=== PATIENT | male | born 1935 | race Caucasian/White ===

== ENCOUNTER → 2018-11-23 | Outpatient (CLI) | payer MEDICARE, OTHER ==
[~2018-11-23] MED LIST: ADULTS 50+ MUL1 EACH PO; ALBU90OI INH; ASPI81CH PO; ATOR20 PO; ATOR40TA; ATOR40TA PO; BISA10S PR; CARV25 PO; CEPH500 PO; COZAAR PO; Carvedilol25 MG PO; DIPASPER; EZET10 PO; FISH1000 PO; HCTZ; HYDR1TAB94 PO; LOSA25 PO; METR500 PO; Norco 5-325 Ta1 EACH PO; Rocephin 1g1 G/50 ML IV; SPACE CHAMBER1 EACH MC; VALS80; Zithromax250 MG PO
== END | disposition home or self-care (01) ==
LOC: LAB 20:14 → LAB SHORT 20:14
DX: L08.9 Local infection of the skin and subcutaneous tissue, unspecified (principal)
CPT/HCPCS: 87070; 87205

== ENCOUNTER → 2019-02-16 | Outpatient (CLI) | payer MEDICARE, OTHER ==
[2019-02-19 13:06] LABS: DOPAMINE, URINE 247 ug/L (Undefined)
== END | disposition home or self-care (01) ==
LOC: LAB SHORT 10:53 → LAB 10:53
PROVIDERS: Family Medicine
DX: R61 Generalized hyperhidrosis (principal)
CPT/HCPCS: 81050; 82384

== ENCOUNTER 2020-11-01 10:38 | Inpatient (IN) | payer MEDICARE, OTHER ==
[~2020-11-01] VITALS: Ht 172.7 cm; Wt 82.0 kg
[~2020-11-01 10:38] MED LIST changes: -ATOR40TA PO; -CARV25 PO
[2020-11-01 12:00] LABS: BASOPHILS ABSOLUTE AUTO 0.02 K/mm3 (0.00-0.23); BASOPHILS PERCENT AUTO 0 % (0-2); EOSINOPHILS PERCENT AUTO 0 % (0-6); Hematocrit 29.9 % (37.0-53.0); Hemoglobin 9.7 g/dL (13.5-17.5); IMMATURE GRAN ABSOLUTE AUTO 0.05 K/mm3 (0.00-0.10); IMMATURE GRAN PERCENT AUTO 1 % (0-1); LYMPHOCYTES PERCENT AUTO 6 % (21-46); MONOCYTES ABSOLUTE AUTO 0.49 K/mm3 (0.16-1.47); MONOCYTES PERCENT AUTO 6 % (4-13); Mean Corpuscular HGB 32.7 pg (26.0-34.0); Mean Corpuscular HGB Conc 32.4 g/dL (31.5-36.5); Mean Corpuscular Volume 101 fL (80-100); NEUTROPHILS ABSOLUTE AUTO 6.99 K/mm3 (1.96-9.15); NEUTROPHILS PERCENT AUTO 87 % (41-73); Platelet Count 119 K/mm3 (150-400); RDW Coefficient Variation 12.4 % (11.7-14.2); RDW Standard Deviation 46.5 fL (35.1-46.3); Red Blood Cell Count 2.97 M/mm3 (4.30-5.90); White Blood Cell Count 8.05 K/mm3 (4.00-11.30)
[2020-11-01 12:24] LABS: Alanine Aminotransfer (ALT/SGP 39 U/L (12-78); Albumin, Blood 2.9 g/dL (3.4-5.0); Albumin/Globulin Ratio 0.7 (0.8-1.8); Alk Phos 105 U/L (50-136); Anion Gap 6 mmol/L (6-16); Aspartate Aminotrans (AST/SGOT 66 U/L (12-37); Bilirubin, Total 0.8 mg/dL (0.1-1.0); Blood Urea Nitrogen 43 mg/dL (8-24); Bun/Creatinine Ratio 21.7 (12.0-20.0); CO2, Blood 26 mmol/L (21-32); Calcium, Blood 8.5 mg/dL (8.5-10.1); Chloride, Blood 105 mmol/L (98-108); Creatinine, Blood 1.98 mg/dL (0.60-1.20); Globulin, Blood 4.1 g/dL (2.2-4.0); Glomerular Filtration Rate 34 (60-); Glucose, Blood 168 mg/dL (70-99); Potassium, Blood 4.6 mmol/L (3.5-5.5); Sodium, Blood 137 mmol/L (136-145); Troponin I 0.026 ng/mL (0.000-0.040)
[2020-11-01 12:30] LABS: CPK Creatine Kinase 1156 U/L (39-308); Creatine Kinase MB <1.0 ng/mL (0.0-3.6); Creatine Kinase MB Index Unable to Calculate (0.0-4.0)
[2020-11-01] MEDS ORDERED: LOSARTAN POTASS25 M2 PO (12:56)
[2020-11-01] MEDS ORDERED: ATOR40TA PO (12:56)
[2020-11-01] MEDS ORDERED: AMLODIPINE BES2.5 MG PO (12:57)
[2020-11-01] MEDS ORDERED: CARV25 PO (12:57)
--- NOTE | 2020-11-01 13:33 | NUR ---
ED Palliative Care Consult Spoke with ED Provider Hermila and discussed case. Pt has Dementia and had recent fall. Pt's spouse has reported hospice is suppose to come evaluate Pt for appropirateness of hospice. presented POLST to staff with Pt's wishes of DNR. returned home with POLST. Spoke with Hospitalist Ross and discussed case. Plan for Pt to be admitted to hospital. Pt resting on gurney upon arrival. Pt is pleasantly confused. Pt A&OX1. Pt denies pain at this time. Mild dyspnea and non productive cough noted. Attempted to contact spouse. No answer and voicemail not available. Will attempt to contact spouse at a later time. Palliative Care will F/U with Pt and family once admitted to floor.
--- NOTE | 2020-11-01 14:30 | NUR ---
REPORT RECIEVED FROM MARIBELL SUMNER RN
[2020-11-01 15:23] LABS: Source, Urine Clean Catch
[2020-11-01] MEDS ORDERED: AMLO5 (15:44)
[2020-11-01] MEDS ORDERED: FISH OIL PO (15:47)
[2020-11-01] MEDS ORDERED: CENTRUM SILVER1 EAC2 PO (15:47)
[2020-11-01] MEDS ORDERED: ASPI81CH PO (15:47)
[2020-11-01 15:50] LABS: Appearance, Urine Hazy (Clear); Bilirubin, Urine Neg (Neg); Blood, Urine 4+ (Neg); Color, Urine Amber (P-Yellow); Glucose Qualitative, Urine Neg (Neg); Ketones, Urine Neg (Neg); Leukocyte Esterase, Urine 1+ (Neg); Nitrite, Urine Neg (Neg); Protein, Urine 2+ (Neg); Specific Gravity, Urine 1.015 (1.003-1.022); Urobilinogen, Urine NORM (Normal)
[2020-11-01 16:18] LABS: Amorphous Light (0-Heavy); Bacteria Few /hpf; Granular Casts Rare /lpf (0); Squamous Epithelial Cells Rare /hpf (Few); Transitional Epithelial Cells Rare /hpf (0-Rare)
--- NOTE | 2020-11-01 22:39 | NUR ---
2000 85 Y/O MALE RESTING COMFORTABLY IN BED; CHEERFUL; DENIES PAIN OR NAUSEA; BED ALARM APPLIED FOR SAFETY.
[2020-11-02 03:29] LABS: Source, Urine Catheter
[2020-11-02 03:31] LABS: Bilirubin, Urine Neg (Neg); Blood, Urine 5+ (Neg); Glucose Qualitative, Urine Neg (Neg); Ketones, Urine 1+ (Neg); Leukocyte Esterase, Urine Neg (Neg); Nitrite, Urine Neg (Neg); Protein, Urine 2+ (Neg); Urobilinogen, Urine NORM (Normal)
[2020-11-02 03:36] LABS: Appearance, Urine Hazy (Clear); Color, Urine Yellow (P-Yellow)
[2020-11-02 03:37] LABS: Amorphous Light (0-Heavy); Bacteria Mod /hpf; Red Blood Cells, Urine 50-100 /hpf (0-2); Squamous Epithelial Cells Not Seen /hpf (Few)
[2020-11-02 04:45] LABS: Calcium, Blood 7.9 mg/dL (8.5-10.1); Creatinine, Blood 1.54 mg/dL (0.60-1.20); Potassium, Blood 4.2 mmol/L (3.5-5.5)
--- NOTE | 2020-11-02 05:10 | NUR ---
SHIFT SUMMARY: 72 Y/O MALE RESTED COMFORTABLY ALL NIGHT IN HIGH FOWLERS POSITION WHILE WEARING O2 AT 2L/M PER NASAL CANNULA; QUINN DRAINING CLEAR YELLOW FLUID; DENIES PAIN OR NAUSEA; RIGHT FOOT WOUND VAC HAS ZERO DRAINAGE WITH SITE DRY AND INTACT ON 120MM/HG CONTINUOUS SUCTION; PT ALERT AND ORIENTED X 3, ABLE TO FOLLOW SIMPLE VERBAL COMMANDS; PT DOES REQUIRE ASSISTANCE WITH ALL ADLS/IADLS TO INCLUDE REPOSITIONING IN BED AND SET UP DRINKS AND SNACKS; BED ALARM APPLIED FOR SAFETY, BED LOW POSITION WITH CALL LIGHT AT SIDE.
--- NOTE | 2020-11-02 06:03 | NUR ---
SHIFT SUMMARY: 85 Y/O MALE RESTED COMFORTABLY ALL SHIFT; PT UNABLE TO VOID AFTER BLADDER SCAN REFLECTED GREATER THAN 525ML; QUINN CATHETER #16 PLACED (COUDE) AFTER MUCH DIFFICULTY WITH UA SENT TO LAB X 2 ASSIST; PT ALERT AND ORIENTED X 1, ABLE TO FOLLOW SIMPLE VERBAL COMMANDS; DENIES PAIN OR NAUSEA; LUNG SOUNDS ARE DIMINISHED THROUGHOUT WHILE WEARING O2 AT 2L/M PER NASAL CANNULA; BED ALARM APPLIED FOR SAFETY, BED LOW POSITION WITH CALL LIGHT AT SIDE.
--- NOTE | 2020-11-02 15:47 | NUR ---
Pt admitted to hospital for Acute Kidney Injury. Pt's medical history and comorbidities include: Dementia, CVA with Left Side Defecits, Ischemic Cardiomyopathy, Diastolic CHF, Defib/Pacemaker Placement, Cardiomegaly, Mitral Valve Degeneration, Afib, HTN, Multiple Falls, and COPD. Pt resting in bed upon arrival and is pleasantly confused. Pt's spouse Gayatri at bedside. Pt intermittently attempts to respond to conversations taking place with 1 to 2 word sentences. Mild dyspnea noted. Engaged in therapeutic conversation with Pt's spouse Gayatri. Listened as Gayatri discusses events leading up to this hospital stay. Gayatri reports seeing a significant decline in Pt's condition over the last several months. Gayatri reports Pt uses a lift chair recliner to assist with standing and sitting. Pt has a shuffling gate and needs assistance with dressing and bathing. Pt also tends to urinate in inappropriate places around the house. Gayatri reports Pt's appetite has significantly decreased. Gayatri also reports difficulty with getting Pt to bathe or shower. Gayatri reports no significant weight loss. Gayatri reports Pt's PCP had sent a referral to hospice but is unsure which agency. Gayatri also is requesting assistance with finding caregiver support. 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 Gayatri is agreeable with hospice. Educated on hospice philosophy. Gayatri expresses appreciation of visit and reports no other concerns at this time. Obtained copy of Pt's POLST and delivered to medical records. Pt's wishes are DNR and Comfort Measures Only. POLST completed with Pt's PCP Dr Capps in 2018. Spoke with Bedside RN Bailey and discussed case. Placed social service referral for assistance with caregiving. Hospice referral already placed. PPS 50% ADLs 5/6 FAST 7C Pt appears appropriate for hospice services and would benefit from hospice evaluation for services. Palliative Care will remain available.
[2020-11-02 16:17] LABS: PCO2 Arterial 30.5 mmHg (35-45); PO2 Arterial 43.2 mmHg (80-100); pH Blood Arterial 7.42 (7.35-7.45)
--- NOTE | 2020-11-02 16:33 | NUR ---
PT OXYGEN SATURATION/RESPIRATIONS PT EXHIBITED CHANGE IN BREATHING PATTERN THIS LIGIA WITH MORE LABORED BREATHING AT APPROXIMATELY 1550. PT RECIEVED SCHEDULED DUONEB TREATMENT PER RT AND CONTINUED TO EXHIBIT LABORED BREATHING. RESPIRATIONS ELEVATED UPON EVENING VS AND OXYGEN SATURATION DROPPED TO 82% ON 2.5 L O2 VIA NC. THIS RN PLACED PT ON 6 L NC AND SATURATION WENT UP TO 85%. THIS RN CALLED DR. LORA TO UPDATE ON PT STATUS AND ABG ORDERED WITH SOLUMEDROL PER EMAR. ABG P02 WAS CRITICAL AT 43.[address] LORA NOTIFIED AT APPROXIMATELY 1620. RT IS IN THE ROOM AND PT IS CURRENTLY ON HIGH FLOW NC. THIS RN WILL CONTINUE TO MONITOR PT STATUS.
--- NOTE | 2020-11-02 17:14 | NUR ---
Spoke with Bedside LINCOLN Avalos and RT Terrance. Dr Reyes ordered ABG with results of critical low O2 values. Called and spoke with Dr Reyes and discussed Pt's wishes listed on POLST. Dr Reyes would like Palliative Care to have further conversations with Pt's spouse regarding Pt's wishes indicated on POLST. Called and spoke with spouse Gayatri. Provided update on Pt's low O2 values. Engaged in therapeutic discussion regarding Pt's goals including wishes indicated on POLST of DNR and Comfort Measures Only. Initialy Gayatri reports being uncertain. Educated on life sustaining treatments including comfort care philosophy. Discussed options of escalating care including measures for limited treatment. After further discussion spouse indicates the importance of following Pt's wishes and would like to pursue comfort measures only. Gayatri states she would like Pt to receive medications for comfort only. Gayatri expresses apprciation of call. Called and spoke with Dr Reyes. Placed orders for comfort care, comfort care order set, and D/C maintenance medicaitons per V/O from Dr Reyes. Spoke with Bedside LINCOLN Avalos and discussed case. Palliative Care will remain available for symptom management and supportive visits.
--- NOTE | 2020-11-02 17:58 | NUR ---
SHIFT SUMMARY PT IS AO TO SELF AND FAMILY. PT DENIES PAIN, N/V. PT EXHIBITED TACHYPNEA THIS LIGIA-SEE NOTE. PT IS CURRENTLY ON 23 L O2 VIA HIGH-FLOW NC. PT TRANSITIONED TO COMFORT CARE PER POL THIS LIGIA. PT IS 1-2 ASSIST TO BCC WITH GAIT BELT. PT UP IN CHAIR ONCE THIS SHIFT BUT STARTED SLIDING DOWN THE CHAIR AND MOVED TO THE BED. PT AHD 2 LOOSE STOOLS THIS AM. PT SEEN BY PALLIATIVE CARE. PT EVALUATED PT TODAY. PT HAD BREATHING TREATMENTS PER RT. PT IS IN BED, CALL LIGHT IN REACH, BED IN LOW POSITION.
--- NOTE | 2020-11-02 23:25 | NUR ---
PT refusing to wear oxygen was on 23 l via high flow, now on room air. Declined oxygen use repeatedly. Denies pain or anxiet. Raymundo cath patent draining clear yellow urine. Drinking diet pepsi, bites of pudding.
--- NOTE | 2020-11-02 23:28 | NUR ---
pt continues to decline oxygen use, no home oxygen use. Pleasantly confused. Denies pain or unmet needs.
--- NOTE | 2020-11-03 02:39 | NUR ---
PT continues to decline oxygen & continues alert With pleasant confusion. Denies pain or anxiety. He is drinking diet pepsi, fed some yogurt.
--- NOTE | 2020-11-03 06:43 | NUR ---
pt ALERT AWAKE CONTINUES TO DECLINE ANY OXYGEN USE dnr STATUS ON COMFORT MEASURES. FED SNACK DRINKING DIET PEPSI OVER ICE.
--- NOTE | 2020-11-03 10:30 | NUR ---
Comfort Care visit - Pt with obvious dyspnea despite "no complaints". Pt's respiratory rate 30-34/min. Severe dyspnea, not able to get even one to two words out with SOB and audible wheeze. Circumoral cyanosis noted. Pt denies pain or any other s/s but looks distressed, anxious and uncomfortable. CAR WASH ATTENDANT and I repositioned pt & moved up in bed with hob elevated again when done. He had slid down in bed with feet up against foot board. Pt denies needs. He appears extremely stoic. He does not want anyone to be bothered in helping him. Spoke with RN re: use of Roxanol for severe dyspnea and strategy for s/s management. CM and regulatory coordinator notes reviewed. They are in contact with and working on safe d/c plan for pt. Pal Care to cont to follow for s/s management and support.
--- NOTE | 2020-11-03 17:27 | NUR ---
SUMMARY PT RESTING QUIETLY IN BED, HAS BEEN ON COMFORT CARE, MED PER EMAR FOR COMFORT AND INCREASED WORK OF BREATHING, SPOUSE HAS BEEN IN TO SEE THE PT AND TO SPEAK WITH CARE MANAGEMENT, NO COMPLAINTS, WILL CONT TO MONITOR
--- NOTE | 2020-11-03 20:58 | NUR ---
PT wearing oxygen 2 l nc or has in moth. resting comfortably.
--- NOTE | 2020-11-03 22:19 | NUR ---
MEDICATED FOR SECRETIONS, PAIN DYSPNEA . PT HAS aicd FUNCTION UNKNOWN. Howard CATH PATENT.
--- NOTE | 2020-11-04 01:23 | NUR ---
PT with pacemaker AICD implanted 2009 with open heart valve replacement. He was on comfort measures & had 2 l oxygen via mouth for comfort. Medicated twice with roxinol 20 mg sl & 1 time for air hunger dyspnea with ativan 1 mg sl with helpful effect. Had applied scopalimine patch for upper airway rattling. Sitting outside room noted cease in respirations which had been noisy. With PT as he took last breath. Postmortum care provided & I called Gayatri at 0110 who will be coming down to spend time with PT & hold him one last time. She also said prearrangements are made with [employer] & to call his Daughter in [place]. She mentioned that PT had made prearrangements to have cardiac device removed so attempting to make arrangements to facilitate that. DTR is flying in this AM. DR RODGERSPR updated.
--- NOTE | 2020-11-04 03:56 | NUR ---
PEr PT's request notified [facility] & [facility] that PT had agreed to harvesting of pacemaker AICD unit after expiration. [facility] notified of Request.
== END 2020-11-04 00:48 | DRG 682 ==
LOC: ER 10:38 → MEDS 13:18
PROVIDERS: Family Medicine; Internal Medicine; Nurse Practitioner Acute Care; Physician Assistant; ADMIT Internal Medicine
DX: N17.9 Acute kidney failure, unspecified (principal); J96.01 Acute respiratory failure with hypoxia; J44.1 Chronic obstructive pulmonary disease with (acute) exacerbation; M62.82 Rhabdomyolysis; I13.0 Hypertensive heart and chronic kidney disease with heart failure and stage 1 through stage 4 chronic kidney disease, or unspecified chronic kidney disease; I50.32 Chronic diastolic (congestive) heart failure; I69.354 Hemiplegia and hemiparesis following cerebral infarction affecting left non-dominant side; Z20.828 Contact with and (suspected) exposure to other viral communicable diseases; Z66 Do not resuscitate; Z51.5 Encounter for palliative care; F03.90 Unspecified dementia, unspecified severity, without behavioral disturbance, psychotic disturbance, mood disturbance, and anxiety; Z91.81 History of falling; Z95.3 Presence of xenogenic heart valve; Z95.1 Presence of aortocoronary bypass graft; Z95.810 Presence of automatic (implantable) cardiac defibrillator; R62.7 Adult failure to thrive; I48.0 Paroxysmal atrial fibrillation; N18.9 Chronic kidney disease, unspecified; E78.5 Hyperlipidemia, unspecified; Z95.5 Presence of coronary angioplasty implant and graft; Z87.01 Personal history of pneumonia (recurrent); Z99.3 Dependence on wheelchair
CPT/HCPCS: 36415; 36600; 71046; 80048; 80053; 81001; 82550; 82553; 82803; 83735; 83880; 84100; 84145; 84484; 84550; 85025; 85730; 87077; 87086; 87186; 93005; 93010; 93306; 94640; 94760; 96360; 96361; 97110; 97161; 99285-25; A9270; A9270-GY; J1644; J1940; J2930; J7030; J7512